=== PATIENT | male | born 1965 | race Caucasian/White ===

== ENCOUNTER 2016-05-21 11:33 | Emergency (ER) | payer OTHER ==
[~2016-05-21] VITALS: Ht 177.8 cm; Wt 100.2 kg
[2016-05-21 11:35] VITALS: TEMP 36.7; Ht 177.8 cm; Wt 100.2 kg
[2016-05-21] MEDS ORDERED: XYLOCAINE 1%/SOD BICARB 20 ML VIAL INFIL ONE (12:56)
[2016-05-21] MEDS ORDERED: CEPH500C PO (13:36)
[2016-05-21 13:50] VITALS: BP 98/61; PULSE 74; O2SAT 98
--- NOTE | 2016-05-21 14:56 | EMERGENCY ROOM VISIT NOTE ---
History First contact with patient: 12:54 Chief Complaint: LACERATION/CUT (SUT/DERMABOND) Stated Complaint: LACERATION ON RIGHT HAND Nursing Triage Summary: [facility] placed splint to right pinkky finger and bandage. History of Present Illness The patient is a 50 year old male who presents to the Emergency Room with complaints of a laceration and broken bone related to an injury that happened at his salt male today. The patient was attending to pull a board onto a feeder track when his hand got pinched between the board and feeder. The patient was initially seen at the [facility] urgent care center with x-ray showing a fracture. He was sent here for further evaluation. Tetanus immunization is up-to-date within the past 2 years. The patient rates his discomfort a 2 out of 10. The patient is [id number]. Review of Systems 10 system review was performed and was negative except for pertinent positives and negatives as indicated in history of present illness Past Medical/Surgical History Medical Problems: (1) No significant past medical history Surgical Problems: (1) No history of previous surgery Family History Unremarkable Social History Smoking Status: Never Smoker Alcohol Use: none Marital Status: Housing Status: lives with family Occupation Status: employed Current/Historical Medications Scheduled Cephalexin Monohydrate (Keflex), 500 MG PO QID Allergies Coded Allergies: No Known Allergies (Unverified , 05/21/16) Physical Exam Vital Signs Date Time Temp Pulse Resp B/P Pulse Ox O2 Delivery O2 Flow Rate FiO2 05/21/16 13:50 74 18 98/61 98 05/21/16 11:35 36.7 87 18 94/53 99 Room Air Pain Rating (0-10): 3.0 Physical Exam CONSTITUTIONAL: Healthy and well nourished. Alert and oriented X 3 with positive affect. Patient does not appear in any acute distress. HEENT: Normocephalic, atraumatic. Pupils equal, round and reactive. NECK: Full active range of motion without discomfort. MUSCULOSKELETAL: Examination of the right hand shows a 3 cm laceration across the distal palmar region of the fifth metacarpal. It does not cross the MCP flexor crease. The patient has smaller lacerations to the ring finger as well that will not require suture repair. The patient is able to flex and extend his fingers. Capillary refill is less than 2 seconds. INTEGUMENTARY: No rash or other significant dermatologic conditions noted. NEUROLOGIC: No focal neurologic deficits noted. Right hand and fingers are sensory intact. Medical Decision & Procedures Procedure Patient provided verbal consent for wound exploration under local anesthesia. Using buffered 1% lidocaine without epinephrine, good local anesthesia was administered. Wound was then peripherally cleansed with iodine, then covered with a sterile dressing. Using retractors, I was able to visualize a lacerated medial tendon at the level of the volar fifth metacarpal head. It is noted that the patient's fracture is through the proximal phalanx. The patient does have good flexor and and function of the FDP and FDS. The wound was then thoroughly irrigated with normal saline, then approximated using 4-0 nylon simple interrupted sutures. A bacitracin dressing with mynor splinting of the fourth and fifth fingers was applied, and the fingers were held in a flexed position with a metal splint. The patient tolerated the procedure well. ED Course Patient history and physical exam were performed. Nurse's notes were reviewed. The patient did bring a CD with him with his x-rays. I personally reviewed these x-rays, showing a relatively nondisplaced fracture at the proximal third of the fifth proximal phalanx. The patient's laceration is actually on the distal fifth metacarpal region of the palm. Wound exploration does show evidence for a tendon laceration. It is noted, however, but the patient does have full flexor function on this exam. The patient was provided a prescription for Keflex. He refused any perception analgesics. Mynor taping and metal splint with the fourth and fifth fingers in flexed position was applied. I did explain the importance of keeping his fingers flexed to run any further stress on the lacerated tendon. The patient will follow-up with Dr. Judge for further reevaluation and management. The patient was instructed to contact their office for an appointment. He was instructed to watch closely for any signs of infection. The patient was happy with plan of care, and denied any pain at the time of discharge. Medical Decision Impression Primary Impression: Open right hand fracture Additional Impression: Laceration of flexor tendon of right hand Departure Information Dispostion Home / Self-Care Prescriptions Cephalexin Monohydrate (Keflex) 500 Mg Cap 500 MG PO QID for 7 Days, #28 CAP Prov: Domo Rubio PA 05/21/16 Referrals Иван Judge MD Forms HOME CARE DOCUMENTATION FORM, IMPORTANT VISIT INFORMATION Patient Instructions My [facility] Additional Instructions Keep wound clean, dry and covered with an antibiotic ointment and dressing. Wear metal splint until reevaluated by orthopedics. The splint must be in a bent position to prevent further tendon retraction in the finger. Ibuprofen 800 mg and/or Tylenol 1000 mg every 8 hours. You may also alternate these medications for more effective pain relief: Ibuprofen --4 HRS--> Tylenol --4 HRS--> ibuprofen --4 HRS--> Tylenol .... Complete all Keflex antibiotics as prescribed. Follow-up with Dr. Judge ([facility]) for further wound reevaluation - call for an appointment. Problem Qualifiers Primary Impression: Open right hand fracture Encounter type: initial encounter Qualified Codes: S62.91XB - Unspecified fracture of right wrist and hand, initial encounter for open fracture Additional Impression: Laceration of flexor tendon of right hand Encounter type: initial encounter Qualified Codes: S66.821A - Laceration of other specified muscles, fascia and tendons at wrist and hand level, right hand , initial encounter
== END 2016-05-21 13:51 | disposition home or self-care (01) ==
LOC: C.EDB 11:38 → C.EDD 13:51
DX: S61.411A Laceration without foreign body of right hand, initial encounter (principal); S62.646A Nondisplaced fracture of proximal phalanx of right little finger, initial encounter for closed fracture; W23.0XXA Caught, crushed, jammed, or pinched between moving objects, initial encounter; Y99.0 Civilian activity done for income or pay; Y92.69 Other specified industrial and construction area as the place of occurrence of the external cause